=== PATIENT | male | born 1985 | race Caucasian/White ===

== ENCOUNTER 2016-11-26 22:33 | Emergency (ER) | payer SELFPAY ==
[2016-11-26] MEDS ORDERED: IBUPROFEN 200 MG TAB PO ONE (23:23)
[2016-11-26] MEDS ORDERED: ACETAMINOPHEN 500 MG TAB PO ONE (23:23)
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
[2016-11-26 23:46] VITALS: BP 101/64; PULSE 95; RESP 18; TEMP 98.1; O2SAT 99
[2016-11-27] MEDS ORDERED: LIDOCAINE 5% 1 EA PATCH TD SCH (09:00)
[2016-11-27] MEDS ORDERED: PATCH REMOVAL 1 EA PATCH TD SCH (21:00)
== END 2016-11-26 23:46 | disposition home or self-care (01) ==
DX: M53.3 Sacrococcygeal disorders, not elsewhere classified (principal); I10 Essential (primary) hypertension; F17.200 Nicotine dependence, unspecified, uncomplicated; Y04.0XXA Assault by unarmed brawl or fight, initial encounter